=== PATIENT | female | born 1990 | race Hispanic/Latino ===

== ENCOUNTER 2017-07-15 23:04 | Emergency (ER) | payer OTHER ==
[2017-07-15 23:05] VITALS: BMI 47.2
--- NOTE | 2017-07-15 23:35 | ED PDOC ---
Arrival/HPI <Samuel Hart - Last Filed: 07/16/17 01:13> - General Historian: Patient - History of Present Illness Time/Duration: Prior to Arrival <Nathaniel Vargas - Last Filed: 07/16/17 06:36> - General Time Seen by Provider: 07/15/17 23:08 - History of Present Illness Narrative History of Present Illness (Text): 07/15/17 23:31 This is a 26 yo female, hx of substance abuse, pneumonia, bipolar, depression, anxiety, morbid obesity presenting s/p heroin overdose. Pt was recently in rehab and was 1 day out. Pt snorted 2 bags of heroin today, also took 1 mg of xanax, and took 100 mg trazodone. Pt was in rehab for 2 weeks. Pt has been using heroin for 3 1/2 yrs. Longest period of sobriety - 1 month. Denies homicidal and suicidal ideation. PMH: as above PSH: tonsillectomy Allergies: NKDA FH: diabetes, hypertension Home meds: xanax, gabapentin, wellbutrin, lexapro, abilify, trazodone, propanolol Social hx: Current smoker. Denies drinking. Current heroin user. (Nathaniel Vargas) Past Medical History - Provider Review Nursing Documentation Reviewed: Yes - Travel History Have you recently traveled outside [place] w/in the past 3 mons?: No - Infectious Disease Hx of Infectious Diseases: None - Tetanus Immunization Tetanus Immunization: Unknown - Reproductive Menopause: No - Cardiac Hx Cardiac Disorders: No - Pulmonary Hx Respiratory Disorders: No Hx Asthma: Yes - Neurological Hx Neurological Disorder: No - HEENT Hx HEENT Disorder: No - Renal Hx Renal Disorder: No - Endocrine/Metabolic Hx Endocrine Disorders: No - Hematological/Oncological Hx Blood Disorders: No - Integumentary Hx Dermatological Disorder: No - Musculoskeletal/Rheumatological Hx Musculoskeletal Disorders: No Hx Falls: No - Gastrointestinal Hx Gastrointestinal Disorders: No - Genitourinary/Gynecological Hx Genitourinary Disorders: No - Psychiatric Hx Psychophysiologic Disorder: Yes Hx Anxiety: Yes Hx Bipolar Disorder: Yes Hx Depression: Yes Hx Substance Use: Yes (several hours ago) - Surgical History Hx Tonsillectomy: Yes - Anesthesia Hx Anesthesia: Yes Hx Anesthesia Reactions: No Hx Malignant Hyperthermia: No <Nathaniel Vargas - Last Filed: 07/16/17 06:36> Family/Social History - Physician Review Nursing Documentation Reviewed: Yes Family/Social History: Diabetes, Hypertension Smoking Status: Never Smoked Hx Alcohol Use: No Hx Substance Use: Yes (several hours ago) Substance used: herion Hx Substance Use Treatment: No <Nathaniel Vargas - Last Filed: 07/16/17 06:36> Allergies/Home Meds <Samuel Hart - Last Filed: 07/16/17 01:13> <Nathaniel Vargas - Last Filed: 07/16/17 06:36> Allergies/Adverse Reactions: Allergies No Known Allergies Allergy (Verified 07/15/17 23:19) Home Medications: Home Meds Medication Instructions Recorded Confirmed Aripiprazole [Abilify] 5 mg PO HS 07/15/17 07/15/17 Escitalopram [Lexapro] 10 mg PO HS 07/15/17 07/15/17 Gabapentin [Neurontin] 400 mg PO QID 07/15/17 07/15/17 buPROPion [Wellbutrin] 150 mg PO QAM 07/15/17 07/15/17 Review of Systems - Review of Systems Constitutional: absent: Fatigue, Weight Change Eyes: absent: Vision Changes ENT: absent: Hearing Changes, Tinnitus Respiratory: absent: SOB, Cough Cardiovascular: absent: Chest Pain, Palpitations Gastrointestinal: absent: Abdominal Pain, Stool Changes Genitourinary Female: absent: Dysuria, Frequency Musculoskeletal: absent: Arthralgias, Back Pain Skin: absent: Rash, Pruritis Neurological: absent: Headache, Dizziness Endocrine: absent: Diaphoresis, Polyuria Hemo/Lymphatic: absent: Adenopathy, Easy Bleeding Psychiatric: absent: Anxiety, Depression <Nathaniel Vargas - Last Filed: 07/16/17 06:36> Physical Exam Vital Signs Reviewed: Yes Mental Status: Positive for: Alert and Oriented X 3 - Systems Exam Head: Present: Atraumatic, Normocephalic Pupils: Present: PERRL Extroacular Muscles: Present: EOMI Conjunctiva: Present: Normal Neck: Present: Normal Range of Motion. No: Meningeal Signs Respiratory/Chest: Present: Clear to Auscultation. No: Respiratory Distress Cardiovascular: Present: Normal S1, S2 Abdomen: No: Tenderness, Distention, Peritoneal Signs Upper Extremity: Present: Normal Inspection. No: Cyanosis, Edema Lower Extremity: Present: Normal Inspection. No: Edema Neurological: Present: CN II-XII Intact, Speech Normal Skin: Present: Warm, Dry Psychiatric: Present: Alert, Oriented x 3, Normal Insight, Normal Concentration <Nathaniel Vargas - Last Filed: 07/16/17 06:36> Vital Signs Temp Pulse Resp BP Pulse Ox 07/16/17 05:00 98.6 F 82 17 130/82 100 07/16/17 03:00 97.8 F 76 18 134/76 100 07/16/17 01:05 97.9 F 83 19 134/76 99 07/15/17 23:49 98.7 F 99 H 18 138/75 100 Medical Decision Making <Samuel Hart - Last Filed: 07/16/17 01:13> <Nathaniel Vargas - Last Filed: 07/16/17 06:36> ED Course and Treatment: Patient Seen With Resident: In agreement with resident note. Patient was seen and evaluated with resident, came up with plan and treatment together. (Samuel Hart) - Lab Interpretations Lab Results: 07/16/17 00:10 07/16/17 00:10 Lab Results 07/16/17 00:10: Alcohol, Quantitative < 10 07/16/17 00:10: Salicylates < 1 L, Acetaminophen < 10.0 L 07/16/17 00:10: Sodium 140, Potassium 3.4 L, Chloride 101, Carbon Dioxide 28, Anion Gap 14, BUN 21, Creatinine 1.1, Est GFR ( Amer) > 60, Est GFR (Non- Af Amer) > 60, Random Glucose 126 H, Calcium 9.3, Total Bilirubin 0.6, AST 156 H , ALT 179 H, Alkaline Phosphatase 67, Total Protein 7.8, Albumin 4.5, Globulin 3.2, Albumin/Globulin Ratio 1.4 07/16/17 00:10: WBC 12.2 H, RBC 4.91, Hgb 13.7, Hct 41.7, MCV 84.9, MCH 27.9, MCHC 32.9, RDW 13.3, Plt Count 413, MPV 9.9, Gran % 60.6, Lymph % (Auto) 31.4, [place] % (Auto) 7.6 H, Eos % (Auto) 0.2 L, Baso % (Auto) 0.2, Gran # 7.41 H, Lymph # 3.8 H, [place]pine # 0.9 H, Eos # 0.0, Baso # 0.03 07/15/17 23:27: Urine Opiates Screen Positive H, Urine Methadone Screen Negative , Ur Barbiturates Screen Negative, Ur Phencyclidine Scrn Negative, Ur Amphetamines Screen Negative, U Benzodiazepines Scrn Positive, U Oth Cocaine Metabols Negative, U Cannabinoids Screen Negative 07/15/17 23:27: Urine Color Yellow, Urine Appearance Cloudy, Urine pH 6.0, Ur Specific [place] >= 1.030, Urine Protein >=300 H, Urine Glucose (UA) Negative, Urine Ketones Negative, Urine Blood Moderate H, Urine Nitrate Negative, Urine Bilirubin Small H, Urine Urobilinogen 1.0 H, Ur Leukocyte Esterase Small H, Urine RBC 0 - 2, Urine WBC 20 - 25, Ur Epithelial Cells Many, Urine Bacteria Many, Urine HCG, Qual Negative - Medication Orders Current Medication Orders: Discontinued Medications Potassium Chloride (K-Dur 20 Meq Er Tab) 20 meq PO STAT STA Stop: 07/16/17 01:04 Last Admin: 07/16/17 01:28 Dose: 20 meq - Scribe Statement The provider has reviewed the documentation as recorded by the Scribe <Samuel Hart - Last Filed: 07/16/17 01:13> <Nathaniel Vargas - Last Filed: 07/16/17 06:36> - Scribe Statement Lilly Simon Provider Scribe Attestation: All medical record entries made by the Scribe were at my direction and personally dictated by me. I have reviewed the chart and agree that the record accurately reflects my personal performance of the history, physical exam, medical decision making, and the department course for this patient. I have also personally directed, reviewed, and agree with the discharge instructions and disposition. (Samuel Hart) Disposition/Present on Arrival <Samuel Hart - Last Filed: 07/16/17 01:13> - Present on Arrival Any Indicators Present on Arrival: No History of DVT/PE: No History of Uncontrolled Diabetes: No Urinary Catheter: No History of Decub. Ulcer: No History Surgical Site Infection Following: None - Disposition Have Diagnosis and Disposition been Completed?: Yes Disposition Time: 04:00 <Nathaniel Vargas - Last Filed: 07/16/17 06:36> - Disposition Diagnosis: Substance abuse, UTI (urinary tract infection) Disposition: HOME/ ROUTINE Condition: STABLE Discharge Instructions (ExitCare): Urinary Tract Infection in Women (DC), Polysubstance Abuse (ED) Prescriptions: Cephalexin [Keflex] 500 mg PO BID #14 capsule Referrals: Carla Olvera MD [Primary Care Provider] - Follow up with primary Forms: [employer] ([place])
[2017-07-15 23:56] LABS: URINE BILIRUBIN SMALL (NEGATIVE); URINE BLOOD MODERATE (NEGATIVE); URINE GLUCOSE (UA) NEGATIVE (NEGATIVE); URINE KETONE NEGATIVE (NEGATIVE); URINE LEUKOCYTE ESTERASE SMALL Leu/uL (NEGATIVE); URINE PROTEIN >=300 mg/dL (<30 mg/dL)
[2017-07-15 23:59] LABS: URINE APPEARANCE CLOUDY (CLEAR); URINE COLOR YELLOW (YELLOW)
[2017-07-16 00:02] LABS: URINE BACTERIA MANY (NEG); URINE EPITHELIAL CELLS MANY /hpf (0-5); URINE RBC 0 - 2 /hpf (0-2); URINE WBC 20 - 25 /hpf (0-6)
[2017-07-16 00:39] LABS: BASO # 0.03 K/mm3 (0.0-2.0); BASO % 0.2 % (0.0-3.0); EOS % 0.2 % (1.5-5.0); GRAN # 7.41 (1.4-6.5); GRAN % 60.6 % (50.0-68.0); HEMATOCRIT 41.7 % (36.0-48.0); LYMPH # 3.8 (1.2-3.4); LYMPH % 31.4 % (22.0-35.0); MEAN CELL VOLUME 84.9 fl (80.0-105.0); MEAN CORPUSCULAR HEMOGLOBIN 27.9 pg (25.0-35.0); MEAN CORPUSCULAR HGB CONC 32.9 g/dl (31.0-37.0); MEAN PLATELET VOLUME 9.9 fl (7.0-11.0); MONO # 0.9 (0.1-0.6); MONO % 7.6 % (1.0-6.0); RED CELL DISTRIBUTION WIDTH 13.3 % (11.5-14.5); WHITE BLOOD COUNT 12.2 10^3/ul (4.5-11.0)
[2017-07-16 00:49] LABS: ALB/GLOB RATIO 1.4 (1.1-1.8); ALKALINE PHOSPHATASE 67 U/L (38-126); ALT/SGPT 179 U/L (7-56); AST/SGOT 156 U/L (14-36); BILIRUBIN,TOTAL 0.6 mg/dL (0.2-1.3); BLOOD UREA NITROGEN 21 mg/dL (7-21); CALCIUM 9.3 mg/dL (8.4-10.5); CARBON DIOXIDE 28 mmol/L (21-33); CHLORIDE 101 mmol/L (98-107); GFR AFRICAN-AMERICAN > 60; GLUCOSE,RANDOM 126 mg/dL (70-110); POTASSIUM 3.4 mmol/L (3.6-5.0); SODIUM 140 mmol/L (132-148); TOTAL PROTEIN 7.8 g/dL (5.8-8.3)
[2017-07-16] MEDS ORDERED: Potassium Chloride 20 mEq ER Tab PO STA (01:03)
[2017-07-16 03:11] VITALS: O2SAT 100
[2017-07-16 05:51] VITALS: BP 130/82; PULSE 82; RESP 17; TEMP 98.6
--- NOTE | 2017-07-16 10:11 | CARD ---
APPROVED REPORT EKG Measurement Heart [id number] <Conclusion> Sinus tachycardia Small q waves 2,3,F NSSTW changes No change
== END 2017-07-16 05:35 | disposition home or self-care (01) ==
LOC: ED 23:04
DX: N39.0 Urinary tract infection, site not specified (principal); F19.10 Other psychoactive substance abuse, uncomplicated; E66.01 Morbid (severe) obesity due to excess calories; F17.200 Nicotine dependence, unspecified, uncomplicated; Z83.3 Family history of diabetes mellitus